=== PATIENT | female | born 1990 | race American Indian/Alaskan Native ===

== ENCOUNTER 2018-03-14 09:40 | Emergency (ER) | payer MEDICAID ==
[~2018-03-14] VITALS: Ht 167.6 cm; Wt 79.4 kg
[2018-03-14 09:54] VITALS: BP_SYST 124
[2018-03-14] MEDS ORDERED: KETOROLAC TROMETHAMINE 60 MG/2 ML VIAL IM ONE (10:45)
[2018-03-14] MEDS ORDERED: cefTRIAXone 1 GM VIAL IM ONE (10:45)
[2018-03-14] MEDS ORDERED: LIDOCAINE 1%, 20 ML MDV 20 ML ONE (11:06)
[2018-03-14 11:25] VITALS: BP_SYST 120
[2018-03-14 12:31] LABS: BILIRUBIN,URINE NEGATIVE (NEGATIVE); BLOOD, URINE 2+ (NEGATIVE); CLARITY/URINE CLEAR (CLEAR); COLOR,URINE YELLOW (YELLOW); GLUCOSE,URINE NEGATIVE (NEGATIVE); KETONES,URINE TRACE (NEGATIVE); LEUKOCYTE ESTERASE ,URINE 1+ (NEGATIVE); NITRITE, URINE NEGATIVE (NEGATIVE); PROTEIN URINE TRACE (NEGATIVE)
[2018-03-14 13:08] LABS: BACTERIA,URINE RARE /HPF (None Seen)
[2018-03-16 00:49] LABS: CHLAMYDIA TRACHOMATIS NAA Negative (Negative); NEISSERIA GONORRHOEAE NAA Negative (Negative)
== END 2018-03-14 11:25 | disposition home or self-care (01) ==
LOC: SED 09:40
DX: N39.0 Urinary tract infection, site not specified (principal); R03.0 Elevated blood-pressure reading, without diagnosis of hypertension
CPT/HCPCS: 81000; 81025; 87086; 87491; 87591; 96372; 99283; J0696; J1885; J2001

== ENCOUNTER 2018-07-30 08:03 | Emergency (ER) | payer MEDICAID ==
[~2018-07-30] VITALS: Ht 167.6 cm; Wt 79.4 kg
[2018-07-30 08:21] VITALS: BP_SYST 121
--- NOTE | 2018-07-30 08:28 | NUR ---
Patient to ER bed 4 to gown for evaluation. Side rails up. Report given to Dina THOMPSON.
--- NOTE | 2018-07-30 08:34 | NUR ---
ER Dr. Quevedo at bedside examining patient.
--- NOTE | 2018-07-30 08:35 | NUR ---
Patient presented to ER with flank pain and body aches. Patient A&Ox4, skin pink, respirations equal bilat, pain 10/, denies N/V/D. Patient states pain started yesterday temp 100.4. patient denies taking OTC for symptoms.
--- NOTE | 2018-07-30 08:36 | NUR ---
ER Dr. Quevedo at bedside examining patient.
[2018-07-30] MEDS ORDERED: NACL 0.9% 1,000 ML IV ONE ×2 (08:37→09:15)
[2018-07-30] MEDS ORDERED: ONDANSETRON HCL 4 MG/2 ML VIAL IVP ONE (08:45)
[2018-07-30] MEDS ORDERED: KETOROLAC TROMETHAMINE 30 MG VIAL IVP ONE (08:45)
--- NOTE | 2018-07-30 08:55 | NUR ---
ER at bedside interviewing patient.
[2018-07-30 09:01] LABS: BASOPHILS # (AUTO) 0.1 K/uL (0.0-0.2); BASOPHILS % (AUTO) 0.6 % (0.0-2.0); EOSINOPHILS % (AUTO) 0.1 % (0.0-4.0); HEMATOCRIT 32.1 % (36-48); LYMPHOCYTES % (AUTO) 8.3 % (20.5-51.5); MEAN CORPUSCULAR HEMOGLOBIN 23 pg (27-31); MEAN CORPUSCULAR HGB CONC 31 % (32-36); MEAN CORPUSCULAR VOLUME 74 fL (79.0-98.0); MONOCYTES # (AUTO) 0.9 K/uL (0.0-1.0); MONOCYTES % (AUTO) 7.5 % (1.7-9.3); NEUTROPHILS # (AUTO) 9.7 K/uL (1.8-7.7); NEUTROPHILS % (AUTO) 83.5 % (40.0-70.0); PLATELET COUNT (AUTO) 288 K/uL (130-430); RED BLOOD CELL COUNT(AUTO) 4.37 MIL/uL (4.2-6.2); RED CELL DISTRIBUTION WIDTH 16.3 % (9.0-15.0); WHITE BLOOD COUNT (AUTO) 11.7 K/uL (4.8-10.8)
[2018-07-30 09:24] LABS: INR 0.9 (0.8-1.2); PROTHROMBIN TIME 9.3 SECS (9.5-12.5)
[2018-07-30 09:25] LABS: CALCIUM 8.8 mg/dL (8.4-11.0); CREATININE 0.8 mg/dL (0.55-1.30)
[2018-07-30 09:27] LABS: BILIRUBIN,URINE NEGATIVE (NEGATIVE); BLOOD, URINE 2+ (NEGATIVE); CLARITY/URINE SL CLOUDY (CLEAR); COLOR,URINE YELLOW (YELLOW); GLUCOSE,URINE NEGATIVE (NEGATIVE); KETONES,URINE NEGATIVE (NEGATIVE); LEUKOCYTE ESTERASE ,URINE 3+ (NEGATIVE); NITRITE, URINE POSITIVE (NEGATIVE); PH,URINE 8.5 (5.0-8.0); PROTEIN URINE 2+ (NEGATIVE); UROBILINOGEN,URINE 0.2 (0.2-1.0)
[2018-07-30 09:29] LABS: ALBUMIN 2.9 g/dL (3.4-4.8); TOTAL BILIRUBIN 0.6 mg/dL (0.0-1.0)
[2018-07-30 09:35] LABS: BARBITURATE, URINE NEGATIVE (NEG <=200); BENZODIAZEPINE, URINE NEGATIVE (NEG <=150); CANNABINOID, URINE POSITIVE (NEG <=50); COCAINE, URINE NEGATIVE (NEG <=150); METHAMPHETAMINES SCREEN,URINE POSITIVE (NEG <=500); URINE AMPHETAMINE POSITIVE (NEG <=500); URINE METHADONE NEGATIVE (NEG <=200)
[2018-07-30 09:36] LABS: OPIATE, URINE POSITIVE (NEG <=100); PHENCYCLIDINE SCREEN,URINE NEGATIVE (NEG <=25); UR TRICYCLIC ANTIDEPRESSANTS NEGATIVE (NEG <=300); URINE OXYCODONE SCREEN NEGATIVE (NEG <=100); URINE PROPOXYPHENE SCREEN NEGATIVE (NEG <=300)
[2018-07-30 09:47] LABS: BACTERIA,URINE MANY /HPF (None Seen); WBC,URINE 20-50 /HPF (0-3)
[2018-07-30] MEDS ORDERED: IBUPROFEN 800 MG TABLET PO ONE (10:45)
[2018-07-30] MEDS ORDERED: cefTRIAXone 1 GM IVPB PREMIX 50 ML IV ONE (11:00)
[2018-07-30 11:44] VITALS: BP_SYST 124
--- NOTE | 2018-07-30 11:44 | NUR ---
Patient given written and verbal discharge instructions and verbalizes understanding. ER MD Quevedo discussed with patient the results and treatment provided. Patient in stable condition. ID arm band removed. IV catheter removed intact and dressing applied, no active bleeding. Rx of Levaquin, Tylenol, Zofran given. Patient educated on pain management and to follow up with PMD. Pain Scale 0. Opportunity for questions provided and answered. Medication side effect fact sheet provided.
--- NOTE | 2018-08-01 19:10 | NUR ---
Final C & S report reviewed, patient was presviously prescribed Levaquin which the offending organism demonstrates suseptibility to. Per Dr. Quevedo no further action is indicated.
== END 2018-07-30 11:44 | disposition home or self-care (01) ==
LOC: SED 08:03
DX: N10 Acute pyelonephritis (principal); F19.10 Other psychoactive substance abuse, uncomplicated; R03.0 Elevated blood-pressure reading, without diagnosis of hypertension; F17.210 Nicotine dependence, cigarettes, uncomplicated; Z71.6 Tobacco abuse counseling
CPT/HCPCS: 36415; 71045; 74176; 80053; 80307; 81000; 83605; 83690; 84484; 85025; 85610; 85730; 87040; 87086; 87186; 96365; 96375; 99284; G0482; J0696; J1885; J2405; J7030

== ENCOUNTER 2020-01-16 20:25 | Emergency (ER) | payer MEDICAID ==
[~2020-01-16] VITALS: Ht 167.6 cm; Wt 81.6 kg
[2020-01-16 20:34] VITALS: BP_SYST 159
--- NOTE | 2020-01-16 20:50 | NUR ---
Patient triaged and placed in waiting room. VSS and patient appears in no acute distress at this time. Accompanied by self , awaiting available bed, and MD notified of need for MSE.
--- NOTE | 2020-01-16 21:20 | NUR ---
ER DR. FULLER EXAMINING PT IN THE WAITING ROOM
[2020-01-16] MEDS ORDERED: ACETAMINOPHEN 500 MG TABLET PO ONE (21:30)
[2020-01-16] MEDS ORDERED: cephALEXin 500 MG CAPSULE PO ONE (22:15)
--- NOTE | 2020-01-16 23:45 | NUR ---
Patient to ER bed 7 to gown for evaluation. Side rails up.
--- NOTE | 2020-01-16 23:47 | NUR ---
PT PRESENTS FROM HOME WITH C/O VAGINAL BLEEDING X1 HOUR PRIOR TO ARRIVAL. REPORTS SOAKING 1 PAD. ALSO REPORTS CRAMPING AT THIS TIME. AAOX4, V/S STABLE.
[2020-01-17 00:08] LABS: CALCIUM 8.2 mg/dL (8.4-11.0); CREATININE 0.84 mg/dL (0.55-1.30); POTASSIUM 4.3 mmol/L (3.5-5.1)
[2020-01-17 00:10] LABS: BASOPHILS % (AUTO) 0.5 % (0.0-2.0); EOSINOPHILS # (AUTO) 0.2 K/uL (0.0-0.4); EOSINOPHILS % (AUTO) 2.5 % (0.0-4.0); HEMATOCRIT 37.8 % (36-48); HEMOGLOBIN 12.2 g/dL (12.0-16.0); LYMPHOCYTES # (AUTO) 2.6 K/uL (1.0-5.5); LYMPHOCYTES % (AUTO) 30.1 % (20.5-51.5); MEAN CORPUSCULAR HEMOGLOBIN 26 pg (27-31); MEAN CORPUSCULAR HGB CONC 32 % (32-36); MEAN CORPUSCULAR VOLUME 79 fL (79.0-98.0); MONOCYTES # (AUTO) 0.6 K/uL (0.0-1.0); MONOCYTES % (AUTO) 6.7 % (1.7-9.3); NEUTROPHILS # (AUTO) 5.3 K/uL (1.8-7.7); NEUTROPHILS % (AUTO) 60.2 % (40.0-70.0); PLATELET COUNT (AUTO) 322 K/uL (130-430); RED BLOOD CELL COUNT(AUTO) 4.77 MIL/uL (4.2-6.2); RED CELL DISTRIBUTION WIDTH 20.6 % (9.0-15.0); WHITE BLOOD COUNT (AUTO) 8.7 K/uL (4.8-10.8)
[2020-01-17] MEDS ORDERED: ACETAMINOPHEN 500 MG TABLET ONE (00:20)
[2020-01-17] MEDS ORDERED: cephALEXin 500 MG CAPSULE ONE (00:21)
[2020-01-17 00:34] LABS: TOTAL BILIRUBIN 0.3 mg/dL (0.0-1.0)
[2020-01-17 00:55] VITALS: BP_SYST 147
--- NOTE | 2020-01-17 00:55 | NUR ---
Patient given written and verbal discharge instructions and verbalizes understanding. ER MD discussed with patient the results and treatment provided. Patient in stable condition. ID arm band removed. Rx of KEFLEX given. Patient educated on pain management and to follow up with PMD. Pain Scale 0/10. Opportunity for questions provided and answered. Medication side effect fact sheet provided.
[2020-01-17 01:07] LABS: BILIRUBIN,URINE NEGATIVE (NEGATIVE); BLOOD, URINE 2+ (NEGATIVE); CLARITY/URINE TURBID (CLEAR); COLOR,URINE YELLOW (YELLOW); GLUCOSE,URINE NEGATIVE (NEGATIVE); KETONES,URINE NEGATIVE (NEGATIVE); LEUKOCYTE ESTERASE ,URINE 2+ (NEGATIVE); NITRITE, URINE POSITIVE (NEGATIVE); PH,URINE 6.5 (5.0-8.0); PROTEIN URINE NEGATIVE (NEGATIVE); UROBILINOGEN,URINE 0.2 (0.2-1.0)
[2020-01-17 01:46] LABS: BACTERIA,URINE MANY /HPF (None Seen); MUCUS,URINE 1+ /LPF (None Seen); RBC,URINE 20-50 /HPF (0-3); WBC,URINE 20-50 /HPF (0-3)
--- NOTE | 2020-01-19 14:30 | NUR ---
Received sensitivity report from lab , Dr Irwin notified, per Dr Irwin patient sensitive to keflex, keflex given to patient prior discharge.
== END 2020-01-17 00:55 | disposition home or self-care (01) ==
LOC: SED 20:25
DX: O20.0 Threatened abortion (principal); Z3A.09 9 weeks gestation of pregnancy
CPT/HCPCS: 36415; 76801; 76817; 80053; 81000-TC; 84702-TC; 85025; 87086; 99284

== ENCOUNTER 2020-08-16 14:08 | Observation (INO) | payer MEDICAID | END 2020-08-16 15:40 | disposition home or self-care (01) | LOC: SPU 14:08 | PROVIDERS: ADMIT Specialist; ATTEND Specialist | DX: O13.3 Gestational [pregnancy-induced] hypertension without significant proteinuria, third trimester (principal); Z3A.34 34 weeks gestation of pregnancy | CPT/HCPCS: G0378 ==

== ENCOUNTER 2020-11-09 21:00 | Emergency (ER) | payer MEDICAID ==
[~2020-11-09] VITALS: Ht 167.6 cm; Wt 86.2 kg
[2020-11-09 21:00] VITALS: BP_SYST 129
--- NOTE | 2020-11-09 21:00 | NUR ---
Patient to ER bed 3 to gown for evaluation. Side rails up. Report given to Price. ISRA Aguillon at bedside examining patient.
--- NOTE | 2020-11-09 21:05 | NUR ---
ER at bedside examining patient.
--- NOTE | 2020-11-09 21:10 | NUR ---
PT AWAKE, SOMEWHAT LETHARGIC. STATES SHE HAD BEEN HAVING ABDOMINAL SWELLING AND PAIN SINCE THIS MORNING. SOMNOLENT, SPEECH SLIGHTLY SLURRED.
[2020-11-09 21:46] LABS: BASOPHILS % (AUTO) 0.2 % (0.0-2.0); EOSINOPHILS % (AUTO) 0.1 % (0.0-4.0); HEMATOCRIT 25.4 % (36-48); HEMOGLOBIN 7.8 g/dL (12.0-16.0); LYMPHOCYTES # (AUTO) 0.5 K/uL (1.0-5.5); MEAN CORPUSCULAR HEMOGLOBIN 24 pg (27-31); MEAN CORPUSCULAR HGB CONC 31 % (32-36); MEAN CORPUSCULAR VOLUME 79 fL (79.0-98.0); MONOCYTES # (AUTO) 0.4 K/uL (0.0-1.0); MONOCYTES % (AUTO) 2.8 % (1.7-9.3); NEUTROPHILS # (AUTO) 11.9 K/uL (1.8-7.7); NEUTROPHILS % (AUTO) 92.9 % (40.0-70.0); PLATELET COUNT (AUTO) 343 K/uL (130-430); RED CELL DISTRIBUTION WIDTH 21.3 % (9.0-15.0); WHITE BLOOD COUNT (AUTO) 12.8 K/uL (4.8-10.8)
[2020-11-09 22:02] LABS: CALCIUM 8.7 mg/dL (8.4-11.0); CREATININE 1.02 mg/dL (0.55-1.30); POTASSIUM 3.3 mmol/L (3.5-5.1)
[2020-11-09 22:07] LABS: ALBUMIN 3.2 g/dL (3.4-4.8); TOTAL BILIRUBIN 0.6 mg/dL (0.0-1.0)
[2020-11-09 22:12] LABS: C-REACTIVE PROTEIN QUANT 19.8 mg/dL (0-0.5)
[2020-11-09 22:13] LABS: BARBITURATE, URINE NEGATIVE (NEG <=200); BENZODIAZEPINE, URINE NEGATIVE (NEG <=150); CANNABINOID, URINE POSITIVE (NEG <=50); COCAINE, URINE NEGATIVE (NEG <=150); METHAMPHETAMINES SCREEN,URINE POSITIVE (NEG <=500); OPIATE, URINE POSITIVE (NEG <=100); PHENCYCLIDINE SCREEN,URINE POSITIVE (NEG <=25); UR TRICYCLIC ANTIDEPRESSANTS NEGATIVE (NEG <=300); URINE AMPHETAMINE POSITIVE (NEG <=500); URINE METHADONE NEGATIVE (NEG <=200); URINE OXYCODONE SCREEN NEGATIVE (NEG <=100); URINE PROPOXYPHENE SCREEN NEGATIVE (NEG <=300)
[2020-11-09 22:31] LABS: INR 0.9 (0.8-1.2); PROTHROMBIN TIME 9.8 SECS (9.5-12.5)
--- NOTE | 2020-11-09 23:15 | NUR ---
MEAL PROVIDED, TOLERATED WELL, CALM, ALERT, RESP UNLABORED
[2020-11-09] MEDS ORDERED: KETOROLAC TROMETHAMINE 30 MG VIAL IM ONE (23:30)
[2020-11-09] MEDS ORDERED: IBUP-1970 PO (23:49)
[2020-11-10 00:24] VITALS: BP_SYST 119
--- NOTE | 2020-11-10 00:26 | NUR ---
Patient given written and verbal discharge instructions and verbalizes understanding. ER MD discussed with patient the results and treatment provided. Patient in stable condition. ID arm band removed. Rx of IBU given. Patient educated on pain management and to follow up with PMD. Pain Scale 0/10 Opportunity for questions provided and answered. Medication side effect fact sheet provided.
== END 2020-11-10 00:25 | disposition home or self-care (01) ==
LOC: SED 21:00
DX: K29.70 Gastritis, unspecified, without bleeding (principal)
CPT/HCPCS: 36415; 74176; 76376; 80053; 80307; 81025; 82150; 83605; 83690; 84703; 85025; 85610; 85730; 86140; 96372; 99284; J1885